=== PATIENT | male | born 2000 | race Caucasian/White ===

== ENCOUNTER 2023-03-31 17:12 | Emergency (ER) | payer OTHER, SELFPAY ==
[2023-03-31 17:14] VITALS: BP 139/90; PULSE 84; RESP 17; TEMP 36.7; O2SAT 98; BMI 25.8
[2023-03-31 17:30] VITALS: BP 130/82; PULSE 73; O2SAT 98
[2023-03-31 18:00] VITALS: BP 136/85; PULSE 77; O2SAT 98
--- NOTE | 2023-03-31 18:10 | [facility].EDGENADL ---
Discharge Plan Disposition Patient Disposition: Home, Self-Care Referrals Follow up/Referrals: Reginald Mann [Primary Care Provider] - See instructions Activity Restrictions/Add. 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 This should completely resolve over the period of months he may follow-up with a hand surgeon as we discussed to ensure complete resolution. 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 by RN): Pt c/o L hand pain, numbness, and parathesia extending up to pt's elbow that began this morning upon waking. Denies any known injury, however he reports he partied harrison hard last night with alcohol and lortabs. States he fell asleep in a chair and upon waking the symtoms were presents. 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 Nothing makes the symtoms go away or worsen. Previous wrist fx repair to left wrist. Small cut to posterior hand that was not present last night and not sure what happened per pt. History of Present Illness HPI narrative: Patient is a 22-year-old male presents today with left upper extremity sensory changes and motor weakness since this morning. States he was drinking heavily and smoking marijuana last night and was intoxicated and fell asleep on a chair. Unsure as to what position his left arm was then but he woke up and had some numbness over the dorsal aspect over the hypothenar eminence of the left hand with some weakness with extension of the wrist and extension of the fingers. States that over the course the day his motor weakness is significantly improved. Still has some paresthesias over the dorsal aspect of the left hand. No complete wrist drop. Still has strength with extension of the elbow and no other complaints more proximal to the hand. [facility] Disclaimer: The information contained in this section may have been updated after the patient was seen, as this information can be updated by other users. Social History Smoking Status: Current every day smoker alcohol intake: never current occupational status: other Travel in the last 8 weeks: None ROS Obtained: Yes All systems reviewed & no additional complaints except as documented Physical Exam General General appearance: alert Respiratory Respiratory exam: Present normal lung sounds bilaterally Cardiovascular Cardiovascular exam: Present regular rate; Absent tachycardia Neurological Exam Neurological exam: Present other (Patient has 4/5 strength of the left wrist and extensors in the left hand has some paresthesias over the hypothenar eminence of the left hand has normal radial nerve extension strength at the elbow otherwise median ulnar and axillary nerves are normal from an sensory and motor standpoint) Psychiatric Psychiatric exam: Present other Medical Decision Making Nathan Inquiry Pt receiving controlled substance: No Vital Signs: 03/31/23 17:14 03/31/23 17:30 03/31/23 18:00 Temperature 98.0 F Temperature Source Oral Pulse Rate 73 77 Pulse Rate [Right] 84 Respiratory Rate 17 Blood Pressure 130/82 136/85 Blood Pressure [Right Arm] 139/90 Blood Pressure Mean 98 96 Blood Pressure Mean [Right Arm] 106 02 Sat by Pulse Oximetry 98 98 98 Oxygen Delivery Method Room Air Medical Decision Narrative: Patient clinically has a mild Sunday night palsy which
[2023-03-31 18:11] VITALS: BP 136/85; PULSE 80; RESP 17; TEMP 36.7; O2SAT 99
== END 2023-03-31 18:15 | disposition home or self-care (01) ==
PROVIDERS: Emergency Provider Student in an Organized Health Care Education/Training Program; PCP Pediatrics
DX: G56.32 Lesion of radial nerve, left upper limb (principal); F17.200 Nicotine dependence, unspecified, uncomplicated
CPT/HCPCS: 99282